=== PATIENT | male | born 2000 | race Caucasian/White ===

== ENCOUNTER 2018-08-27 13:35 | Emergency (ER) | payer BC ==
[2018-08-27 13:56] VITALS: TEMP 97.6
--- NOTE | 2018-08-27 14:12 | ED.PDOC ---
History of Present Illness - General Chief Complaint: ENT Problem Time Seen by Provider: 08/27/18 14:04 Source: patient Exam Limitations: no limitations - History of Present Illness Initial Comments: Patient presents with a sore throat for three days. He also has had general fatigue. He has had green nasal exudates and a cough productive of green sputum. He has had a sinus headache as well. He is not sure if he has had a fever but has been taking ibuprofen and Tylenol. His girlfriend was diagnosed with streptococcal pharyngitis last week. No other complaints. Timing/Duration: other - three days Severity: moderate Improving Factors: nothing Worsening Factors: nothing Associated Symptoms: other - as in HPI Allergies/Adverse Reactions: Allergies NO KNOWN ALLERGY Allergy (Verified 08/27/18 13:50) Review of Systems - Review of Systems Constitutional: States: see HPI EENTM: States: see HPI Respiratory: States: see HPI Cardiology: States: no symptoms reported Gastrointestinal/Abdominal: States: no symptoms reported Genitourinary: States: no symptoms reported Musculoskeletal: States: no symptoms reported Skin: States: no symptoms reported Neurological: States: no symptoms reported Endocrine: States: no symptoms reported Hematologic/Lymphatic: States: no symptoms reported Past Medical History (General) - Patient Medical History Hx Seizures: No Hx Stroke: No Hx Dementia: No Hx Asthma: No Hx of COPD: No Hx Cardiac Disorders: No Hx Congestive Heart Failure: No Hx Pacemaker: No Hx Hypertension: No Hx Thyroid Disease: No Hx Diabetes: No Hx Gastroesophageal Reflux: No Hx Renal Disease: No Hx Cancer: No Hx of HIV: No Hx Hepatitis C: No Hx MRSA: No Surgical History: no surgical history - Vaccination History Hx Tetanus, Diphtheria Vaccination: Yes Hx Influenza Vaccination: No Hx Pneumococcal Vaccination: No Immunizations Up to Date: No - Social History Hx Chewing Tobacco Use: No Hx Alcohol Use: No Hx Substance Use: No Hx Substance Use Treatment: No Hx Depression: No Feels Threatened In Home Enviroment: No Feels Threatened In a Relationship: No Hx Physical Abuse: No Hx Emotional Abuse: No Hx Suspected Abuse: No - Activities of Daily Living Hospice Agency (if applicable):: None - Female History Patient is a Female of Child Bearing Age (10 -59 yrs old): No Patient : No Family Medical History - Family History Mother Family History: Unknown Physical Exam - Physical Exam General Appearance: Alert Ears, Nose, Throat: sinus pain/drainage, pharyngeal erythema - Mild Neck: full range of motion, supple, lymphadenopathy (L) - Tender, mobile, fluctuant, rubbery in consistency, less than 1 cm Respiratory: chest non-tender, lungs clear, normal breath sounds, no respiratory distress Cardiovascular/Chest: regular rate, rhythm, no murmur Gastrointestinal/Abdominal: normal bowel sounds, non tender, soft, no organomegaly Progress - Progress Progress: 08/27/18 15:20 Rapid strep negative. Influenza negative. Likely viral URI. Care instructions given. E.R. warnings given. Questions were elicited and answered. Patient voiced understanding and agreement with the plan. - EKG/XRAY/CT CT Ordered: No CT Interpretation Call Back: No Departure - Departure Clinical Impression: Upper respiratory infection Disposition: Discharge to Home or Self Care Condition: Good Departure Forms: ED Discharge - Pt. Copy, Patient Portal Self Enrollment Instructions: DI for Ear Pain-Adult Diet: resume usual diet Activity: increase activity as tolerated Additional Instructions: Over the counter cough and cold formulas. Increase fluids. Tylenol for pain or fever control. Return to the E.R. or your regular doctor if you have a temperature above 100.4, your symptoms worsen, or your symptoms do not resolve in 4-7 days.
[2018-08-27 14:47] VITALS: O2SAT 98
[2018-08-27 15:45] VITALS: BP 146/79
== END 2018-08-27 15:35 | disposition home or self-care (01) ==
LOC: ER 13:35
DX: J06.9 Acute upper respiratory infection, unspecified (principal)

== ENCOUNTER 2018-09-24 20:18 | Emergency (ER) | payer BC ==
[2018-09-24] MEDS ORDERED: OPHTHALMIC SALT SOLUTION 120 ML BTTL ONE (21:14)
--- NOTE | 2018-09-24 21:22 | ED.PDOC ---
History of Present Illness - General Chief Complaint: Eye Problems Time Seen by Provider: 09/24/18 20:53 Source: patient Exam Limitations: no limitations - History of Present Illness Initial Comments: Awoke with red R eye that was matted shut Timing/Duration: this morning Severity: moderate EENT Location: eye (R) Prearrival Treatment: no prearrival treatment Improving Factors: nothing Worsening Factors: nothing Associated Symptoms: denies symptoms Allergies/Adverse Reactions: Allergies NO KNOWN ALLERGY Allergy (Verified 08/27/18 13:50) Home Medications: Ambulatory Orders Sulfacetamide Sodium (Ophth) [Bleph-10] 2 drop OPHTH 5XD #5 ml 09/24/18 Review of Systems - Review of Systems Constitutional: Denies: chills, fever EENTM: States: eye pain - with mild photophobia. Denies: nose congestion, throat pain Respiratory: Denies: cough, short of breath Past Medical History (General) - Patient Medical History Hx Seizures: No Hx Stroke: No Hx Dementia: No Hx Asthma: No Hx of COPD: No Hx Cardiac Disorders: No Hx Congestive Heart Failure: No Hx Pacemaker: No Hx Hypertension: No Hx Thyroid Disease: No Hx Diabetes: No Hx Gastroesophageal Reflux: No Hx Renal Disease: No Hx Cancer: No Hx of HIV: No Hx Hepatitis C: No Hx MRSA: No - Vaccination History Hx Tetanus, Diphtheria Vaccination: Yes Hx Influenza Vaccination: No Hx Pneumococcal Vaccination: No - Social History Hx Chewing Tobacco Use: No Hx Alcohol Use: No Hx Substance Use: No Hx Substance Use Treatment: No Hx Depression: No Hx Physical Abuse: No Hx Emotional Abuse: No Hx Suspected Abuse: No - Female History Patient : No Family Medical History - Family History Mother Family History: Unknown Physical Exam - Physical Exam General Appearance: Alert Eye Exam: right other - conjunctival injection 2+, cornea is clear of lesions, neg fluorescien stain, no FB's, left normal Throat Exam: pharynx normal Neck: non-tender, full range of motion, supple Cardiovascular/Respiratory: normal breath sounds, tachycardia Departure - Departure Clinical Impression: Conjunctivitis Qualifiers: Conjunctivitis type: unspecified Laterality: right Qualified Code(s): H10.9 - Unspecified conjunctivitis Fever Qualifiers: Fever type: unspecified Qualified Code(s): R50.9 - Fever, unspecified Disposition: Discharge to Home or Self Care Departure Forms: ED Discharge - Pt. Copy, Patient Portal Self Enrollment Prescriptions: Sulfacetamide Sodium (Ophth) [Bleph-10] 2 drop OPHTH 5XD #5 ml Home Medications: Ambulatory Orders Sulfacetamide Sodium (Ophth) [Bleph-10] 2 drop OPHTH 5XD #5 ml 09/24/18
[2018-09-24] MEDS ORDERED: ACETAMINOPHEN 500 MG TAB PO ONE (21:28)
[2018-09-24 21:40] VITALS: BP 122/75; TEMP 100; O2SAT 97
== END 2018-09-24 21:48 | disposition home or self-care (01) ==
LOC: ER 20:18
DX: H10.9 Unspecified conjunctivitis (principal); R50.9 Fever, unspecified